=== PATIENT | male | born 1995 | race Caucasian/White ===

== ENCOUNTER 2017-01-14 19:40 | Emergency (ER) | payer BC ==
[~2017-01-14] VITALS: Ht 175.3 cm; Wt 82.0 kg
[~2017-01-14 19:40] MED LIST: OMEG10007; [UNRECOGNIZED DRUG - CODE]
[2017-01-14 19:43] VITALS: TEMP 37.1; Ht 175.3 cm; Wt 82.0 kg
--- NOTE | 2017-01-14 20:32 | EMERGENCY ROOM VISIT NOTE ---
ED Visit Note First contact with patient: 20:00 CHIEF COMPLAINT: Ankle pain HISTORY OF PRESENT ILLNESS: This 21-year-old male patient presents to the emergency department ambulatory after sustaining an injury to the left ankle and foot with a twisting, inversion motion about 2 hours ago. The patient states that he was walking and rolled his ankle. The patient complains of pain along the outside of the ankle. The patient denies pain of the foot. The patient rates the pain as sharp and 3/10. The patient also states that he struck the inside of the ankle on something and this caused a tingling sensation into the foot. The patient is able to bear weight on the foot. Constant pain, worse with movement, weight bearing, and the dependent position. No knee pain, the patient is able to move their toes. No numbness or weakness of the foot, no laceration. The patient has not had a previous fracture to this ankle. The patient has taken no medication for the pain. The patient denies any other injury. REVIEW OF SYSTEMS: A 6 system review of systems was completed with positives and pertinent negatives listed in the HPI. ALLERGIES: No known drug allergies MEDICATIONS: No chronic medications PMH: No significant past medical history. SOCIAL HISTORY: The patient lives locally with family. PHYSICAL EXAM: Vital Signs: Reviewed Nurse's notes, vital signs stable. GENERAL : This is a 21-year-old male, no acute distress, but appears in pain, well- developed, well-nourished. MENTAL STATUS: Alert, oriented to person place and time, and cooperative. MUSCULOSKELETAL: The left ankle is swollen and tender over the lateral malleolus, but the skin is intact and there is no ligamentous instability. There is no fifth metatarsal tenderness. There is no tenderness over the rest of the foot. There is no calf or tibia/fibular tenderness. There is no visual deformity. The foot and toes are warm and well-perfused. Dorsalis pedis pulse 2+. Sensation to pain and light touch is intact. Capillary refill less than 2 seconds. RADIOGRAPHIC FINDINGS: LEFT ANKLE MIN 3 VIEWS ROUTINE CLINICAL HISTORY: 21 years-old Male presenting with left ankle injury, fall with inversion injury. TECHNIQUE: Frontal, mortise, and lateral views of the left ankle were obtained. COMPARISON: None. FINDINGS: Ankle mortise intact. No acute fracture or subluxation. Regional soft tissues normal. No degenerative change. Os trigonum noted. IMPRESSION: No acute osseous injury of the left ankle. EMERGENCY DEPARTMENT COURSE: I examined the patient. He was given 600 mg ibuprofen for pain. X-rays of the left ankle were reviewed by myself and read by radiology and reveal no acute findings. Gel ankle splint was applied to the ankle under my direction and the position was satisfactory. Neurovascular status was rechecked and intact. The patient was instructed on the use of crutches. Conservative measures were discussed with the patient. He will follow-up with orthopedics locally if he has persistent or worsening symptoms. He verbalized understanding of my assessment and treatment plan. The patient was discharged home in good condition. Medication reconciliation: I attest that I have personally reviewed the patient 's current medication list. Blood pressure screening: Patient was found to have normal blood pressure on screening and does not require follow-up. DIAGNOSIS: Left ankle sprain Current/Historical Medications No Active Prescriptions or Reported Meds Allergies Coded Allergies: No Known Allergies (Verified , 01/14/17) Vital Signs Date Time Temp Pulse Resp B/P (MAP) Pulse Ox O2 Delivery O2 Flow Rate FiO2 01/14/17 21:51 82 18 128/78 96 01/14/17 19:43 37.1 85 16 141/90 96 Room Air Medications Administered Medications (Trade) Dose Ordered Sig/Josie Route Start Time Stop Time Status Last Admin Dose Admin Ibuprofen (Motrin Tab) 600 mg NOW STAT PO 01/14/17 21:12 01/14/17 21:13 DC 01/14/17 21:16 600 MG Departure Information Impression Primary Impression: Left ankle sprain Dispostion Home / Self-Care Condition GOOD Prescriptions No Active Prescriptions or Reported Meds Referrals No Doctor, Assigned (PCP) Patient Instructions My [facility] Additional Instructions You have been treated in the Emergency Department for an Ankle sprain. For pain control, you can use the following [id number] medicines (if >12 yo): - Regular strength (325mg/tab) Tylenol (acetaminophen) 2 tabs every 4-6 hours as needed. Do not exceed 12 tablets in a 24 hour period. Avoid taking more than 4 grams (4000 mg) of Tylenol per day. This includes any other sources of acetaminophen you may take on a regular basis. - Regular strength (200 mg/tab) Advil (ibuprofen) 1-2 tabs every 4-6 hours as needed. Do not exceed a dose of 3200 mg per day. If this is a recent injury (<24 hrs), ice can be applied to the area of pain for the first 3 days to help decrease pain and inflammation. You have been provided the number for an Orthopaedic Surgeon. You should call this number as soon as possible to establish a follow-up visit from today's Emergency Department visit. Keep the ankle brace/splint in place and use the crutches you have been provided to keep ALL weight off of the ankle until weight bearing is tolerable. Return to the Emergency Department if your current symptoms worsen despite treatment course outlined above, or if you develop any of the following symptoms : intractable pain despite aforementioned treatment course or new onset of numbness or tingling of the foot. Problem Qualifiers Primary Impression: Left ankle sprain Encounter type: initial encounter Involved ligament of ankle: unspecified ligament Qualified Codes: S93.402A - Sprain of unspecified ligament of left ankle, initial encounter
--- NOTE | 2017-01-14 20:34 | DIAGNOSTIC IMAGING REPORT ---
LEFT ANKLE MIN 3 VIEWS ROUTINE CLINICAL HISTORY: 21 years-old Male presenting with left ankle injury, fall with inversion injury. TECHNIQUE: Frontal, mortise, and lateral views of the left ankle were obtained. COMPARISON: None. FINDINGS: Ankle mortise intact. No acute fracture or subluxation. Regional soft tissues normal. No degenerative change. Os trigonum noted. IMPRESSION: No acute osseous injury of the left ankle. Electronically signed by: Jose Olivera M.D. 01/14/2017 8:33 PM Dictated Date/Time: 01/14/2017 8:31 PM
[2017-01-14] MEDS ORDERED: IBUPROFEN 600 MG TAB PO STA (21:12)
[2017-01-14 21:51] VITALS: BP 128/78; PULSE 82; O2SAT 96
== END 2017-01-14 21:53 | disposition home or self-care (01) ==
LOC: C.EDB 19:41 → C.EDD 21:53
DX: S93.402A Sprain of unspecified ligament of left ankle, initial encounter (principal); X50.1XXA Overexertion from prolonged static or awkward postures, initial encounter; Y93.01 Activity, walking, marching and hiking; Y99.8 Other external cause status

== ENCOUNTER 2017-02-18 21:52 | Emergency (ER) | payer BC ==
[~2017-02-18] VITALS: Ht 175.3 cm; Wt 84.1 kg
[2017-02-18 21:56] VITALS: Ht 175.3 cm; Wt 84.1 kg
[2017-02-18] MEDS ORDERED: PHENLIQ PO (22:57)
[2017-02-18] MEDS ORDERED: IBUP-103 PO (22:57)
--- NOTE | 2017-02-18 23:32 | DIAGNOSTIC IMAGING REPORT ---
SINGLE VIEW CHEST CLINICAL HISTORY: Fever. FINDINGS: An AP, portable, upright chest radiograph is correlated with chest CT dated 04/20/2009. The examination is degraded by portable technique and patient rotation. The cardiomediastinal silhouette is unremarkable. The lungs and pleural spaces are clear. No pneumothorax is seen. The bony thorax is grossly intact. IMPRESSION: No active disease in the chest. Electronically signed by: Derrick Morel M.D. 02/18/2017 11:30 PM Dictated Date/Time: 02/18/2017 11:30 PM
[2017-02-18] MEDS ORDERED: IBUPROFEN 800 MG TAB PO STA (23:42)
--- NOTE | 2017-02-19 00:27 | EMERGENCY ROOM VISIT NOTE ---
History Report prepared by Claudine: Mitesh Wilkins Under the Supervision of: Dr. Moises Ceron D.O. First contact with patient: 22:31 Chief Complaint: ILLNESS Stated Complaint: HIGH FEVER, CHILLS, DIZZINESS History of Present Illness The patient is a 21 year old male who presents to the Emergency Room with complaints of a worsening illness beginning this morning. The patient states that he woke up this morning and did not feel well. He notes that his symptoms have been worsening progressively throughout the day. He reports that he feels like he has a "really high fever" that was measured to be 102.5. The patient states that he took an Advil and DayQuil with mild relief to his symptoms. The patient also states that he is experiencing chills, dizziness, lightheadedness, aches and a sore throat. He denies any cough, runny nose, rashes, or recent travel. The patient states that his family members have been intermittently sick for the past month and that this is the third time that he has been feeling ill. He notes that his previous symptoms do not feel similar to his current symptoms. He denies being on any antibiotics. Source of History: patient Onset: this morning Position: other (global) Quality: other (illness) Timing: worsening Associated Symptoms: + fevers, + chills, No cough Note: he complains of lightheadedness, aches, and a sore throat. he denies any rashes and runny nose Review of Systems See HPI for pertinent positives & negatives. A total of 10 systems reviewed and were otherwise negative. Past Medical & Surgical Medical Problems: (1) No chronic problems Family History No pertinent family history stated. Social History Smoking Status: Current Every Day Smoker Marital Status: single Occupation Status: student Current/Historical Medications Scheduled PRN Ibuprofen Tab (Advil), 400-600 MG PO Q6H PRN for Pain or Fever Bsgpockzmrrjx-Wksyynnyyx-Otjjs (Nite-Time Cold/Flu Relief), 30 ML PO UD PRN for Cold/Flu Symptoms Allergies Coded Allergies: No Known Allergies (Verified , 01/14/17) Physical Exam Vital Signs Date Time Temp Pulse Resp B/P (MAP) Pulse Ox O2 Delivery O2 Flow Rate FiO2 02/18/17 21:56 37.6 114 20 123/57 96 Room Air Physical Exam CONSTITUTIONAL/VITAL SIGNS: Reviewed / noted above. GENERAL: Non-toxic in appearance. INTEGUMENTARY: Warm, dry, and [place]. HEAD: Normocephalic. EYES: without scleral icterus or trauma. ENT/OROPHARYNX: clear and moist. LYMPHADENOPATHY/NECK: Is supple without lymphadenopathy or meningismus. RESPIRATORY: Lungs clear and equal. CARDIOVASCULAR: Regular rate and rhythm. GI/ABDOMEN: Soft and nontender. No organomegaly or pulsatile mass. No rebound or guarding. Normal bowel sounds. EXTREMITIES: Warm and well perfused. BACK: No CVA tenderness. NEUROLOGICAL: Intact without focal deficits. PSYCHIATRIC: normal affect. MUSCULOSKELETAL: Normally developed with good muscle tone. Medical Decision & Procedures ER Provider Diagnostic Interpretation: Radiology results as stated below per my review and radiologist interpretation: SINGLE VIEW CHEST FINDINGS: An AP, portable, upright chest radiograph is correlated with chest CT dated 04/20/2009. The examination is degraded by portable technique and patient rotation. The cardiomediastinal silhouette is unremarkable. The lungs and pleural spaces are clear. No pneumothorax is seen. The bony thorax is grossly intact. IMPRESSION: No active disease in the chest. Electronically signed by: Derrick Morel M.D. 02/18/2017 11:30 PM Laboratory Results Test 02/18/17 23:01 Influenza Type A Antigen Neg for Influ A (NEG) Influenza Type B Antigen Neg for Influ B (NEG) Laboratory results as stated above per my review. Medications Administered Medications (Trade) Dose Ordered Sig/Josie Route Start Time Stop Time Status Last Admin Dose Admin Ibuprofen (Motrin Tab) 800 mg NOW STAT PO 02/18/17 23:42 02/18/17 23:43 DC 02/19/17 00:20 800 MG ED Course 2242: Previous medical records were reviewed. The patient was evaluated in room B9. A complete history and physical examination was performed. 2342: Ibuprofen 800mg PO 0015: On reevaluation, the patient is stable. I discussed the results and findings with the patient. He verbalized agreement of the treatment plan. The patient was discharged home. Medical Decision Differential includes viral illness, influenza, streptococcal pharyngitis, meningitis, pneumonia, sinusitis, UTI, pyelonephritis, otitis media. This is a 21-year-old male who presents to the ED with a chief complaint of subjective fevers and chills. The patient states that he has had the symptoms for about 12 hours. He also has a slight sore throat. He took some Motrin earlier. He denies any other symptoms. He did not want blood testing. His exam was unremarkable for any specific signs. Flu swab was negative, chest x- ray was negative. He did not give a urine sample. The patient was told the results of the test. His symptoms are most likely viral. He is felt to be stable for discharge. Blood Pressure Screening Patient's blood pressure: Normal blood pressure Blood pressure disposition: Did not require urgent referral Impression Primary Impression: Viral syndrome Scribe Attestation The scribe's documentation has been prepared under my direction and personally reviewed by me in its entirety. I confirm that the note above accurately reflects all work, treatment, procedures, and medical decision making performed by me. Departure Information Dispostion Home / Self-Care Referrals No Doctor, Assigned (PCP) Forms HOME CARE DOCUMENTATION FORM, IMPORTANT VISIT INFORMATION, WORK / SCHOOL INSTRUCTIONS Patient Instructions ED Viral Syndrome, My [facility] Additional Instructions Take Tylenol or Motrin for fever. Motrin 600 mg every 6 hours for fever. Tylenol 500 mg every 4 hours for fever. Follow-up with your doctor for further care and evaluation in 3-7 days. Return to the emergency department for worsening or new symptoms or any concerns. You have been examined and treated today on an emergency basis only. This is not a substitute for, or an effort to provide, complete comprehensive medical care. It is impossible to recognize and treat all injuries or illnesses in a single emergency department visit. It is therefore important that you follow up closely with your doctor. Call as soon as possible for an appointment.
[2017-02-19 00:51] VITALS: BP 115/56; PULSE 112; TEMP 38.4; O2SAT 99
[2017-02-19 01:22] LABS: MANUAL MICROSCOPIC REQUIRED? NO; REVIEW REQ? NO; URINE APPEARANCE CLEAR (CLEAR); URINE BILIRUBIN NEG (NEG); URINE COLOR YELLOW; URINE NITRITE NEG (NEG); URINE PH 6.5 (4.5-7.5); URINE SPECIFIC GRAVITY 1.031 (1.000-1.030); UROBILINOGEN NEG (NEG); ZZUR CULT IF INDIC CLEAN CATCH NO
== END 2017-02-19 00:50 | disposition home or self-care (01) ==
LOC: C.EDB 21:53
DX: R69 Illness, unspecified (principal); F17.200 Nicotine dependence, unspecified, uncomplicated